=== PATIENT | male | born 1955 | race Caucasian/White ===

== ENCOUNTER 2017-06-15 15:35 | Emergency (ER) | payer OTHER ==
[~2017-06-15] VITALS: Ht 160 cm; Wt 68.0 kg
[2017-06-15 15:43] VITALS: BP 133/78
--- NOTE | 2017-06-15 15:46 | NUR ---
PT BACK TO LOBBY;
--- NOTE | 2017-06-15 16:35 | NUR ---
PATIENT AMBULATED TO ER BED 8
--- NOTE | 2017-06-15 16:36 | NUR ---
62/M BIB SELF C/O MID ABD PAIN X 2 DAYS.DENIES N/V/D; SKIN IS PINK/WARM/DRY; AAOX4 WITH EVEN AND STEADY GAIT; LUNGS CLEAR BL; PT DENIES ANY FEVER, CP, SOB, OR COUGH AT THIS TIME; PATIENT STATES PAIN OF 8/10 AT THIS TIME. PATIENT POSITIONED FOR COMFORT; HOB ELEVATED; BEDRAILS UP X2; BED DOWN. ER MD MADE AWARE OF PT STATUS.
[2017-06-15] MEDS ORDERED: NACL 0.9% 1,000 ML IV SCH (17:39)
[2017-06-15] MEDS ORDERED: FAMOTIDINE 20 MG/2 ML VIAL IVP ONE (17:40)
[2017-06-15] MEDS ORDERED: MORPHINE SULFATE 4 MG/ML SYR IVP ONE (17:40)
--- NOTE | 2017-06-15 17:53 | NUR ---
PT TAKEN TO CT
[2017-06-15 18:06] LABS: BASOPHILS # (AUTO) 0.4 K/uL (0.00-0.22); EOSINOPHILS # (AUTO) 0.1 K/uL (0-0.4); HEMATOCRIT 43.4 % (36-52); HEMOGLOBIN 14.7 g/dL (12.0-18.0); LYMPHOCYTES # (AUTO) 1.3 K/uL (2.0-11.5); MEAN CORPUSCULAR HEMOGLOBIN 31 pg (27-31); MEAN CORPUSCULAR HGB CONC 34 g/dL (33-37); MEAN CORPUSCULAR VOLUME 90.8 fL (80-94); MONOCYTES # (AUTO) 0.6 K/uL (0.8-1.0); NEUTROPHILS # (AUTO) 8.2 K/uL (1.8-7.7); PLATELET COUNT (AUTO) 237 K/uL (140-450); RED BLOOD CELL COUNT(AUTO) 4.78 MIL/uL (4.20-6.10); RED CELL DISTRIBUTION WIDTH 13.4 % (11.6-13.7); WHITE BLOOD COUNT (AUTO) 10.6 K/uL (4.8-10.8)
[2017-06-15 18:17] LABS: ANION GAP 14.3 (8-16); CARBON DIOXIDE 26.4 mmol/L (21-32); CREATININE 0.7 mg/dL (0.7-1.3); POTASSIUM 3.7 mmol/L (3.5-5.1)
[2017-06-15 18:23] LABS: ALBUMIN 3.8 g/dL (3.4-5.0); TOTAL BILIRUBIN 0.6 mg/dL (0.0-1.0)
[2017-06-15] MEDS ORDERED: FAMOTIDINE 20 MG/2 ML VIAL ONE (18:24)
[2017-06-15] MEDS ORDERED: MORPHINE SULFATE 4 MG/ML SYR ONE (18:26)
[2017-06-15] MEDS ORDERED: LACTULOSE 20 GM/30 ML UDC PO ONE (19:00)
[2017-06-15] MEDS ORDERED: NACL 0.9% 1,000 ML IV ONE (19:00)
--- NOTE | 2017-06-15 19:16 | NUR ---
Pt report given to HERBETR BAZAN. Transfer of care at this time.
--- NOTE | 2017-06-15 19:19 | NUR ---
PT RESTING IN BED, CURENTLY RECEIVING OMAR FLUIDS. NO S/S OF DISTRESS NOTED AT THE MOMENT. WILL CONT TO MONITOR.
[2017-06-15 19:42] VITALS: BP 161/85
--- NOTE | 2017-06-15 19:57 | NUR ---
Patient discharged with v/s stable. Written and verbal after care instructions given and explained. Patient alert, oriented and verbalized understanding of instructions. Ambulatory with steady gait. All questions addressed prior to discharge. ID band removed. Patient advised to follow up with PMD. Rx of COLACE 100MG given. Patient educated on indication of medication including possible reaction and side effects. Opportunity to ask questions provided and answered.
== END 2017-06-15 19:57 | disposition home or self-care (01) ==
LOC: MED 15:35
DX: K59.00 Constipation, unspecified (principal); K21.9 Gastro-esophageal reflux disease without esophagitis; E11.9 Type 2 diabetes mellitus without complications; Z88.2 Allergy status to sulfonamides
CPT/HCPCS: 36415; 74176; 80053; 81002; 82150; 83690; 85025; 96361; 96374; 96375; 99285; J2270; J3490; J7030

== ENCOUNTER 2019-02-19 08:47 | Emergency (ER) | payer OTHER ==
[~2019-02-19] VITALS: Ht 162.6 cm; Wt 73.5 kg
[2019-02-19 09:00] VITALS: BP 151/84
--- NOTE | 2019-02-19 09:12 | NUR ---
63 Y/O M C/C L LOWER BACK PAIN X2 DAYS. PAIN 8. CAUSE UNKNOWN PER PT. HAS NOT TAKEN ANY MEDICATION FOR PAIN. A: SULFA HX: NONE RX: NONE NO N/V/D.
--- NOTE | 2019-02-19 09:40 | NUR ---
DR OLIVEIRA AT BEDSIDE
[2019-02-19] MEDS ORDERED: NACL 0.9% 1,000 ML IV SCH (09:43)
[2019-02-19] MEDS ORDERED: KETOROLAC 30 MG/ML VIAL IVP ONE (09:45)
--- NOTE | 2019-02-19 10:10 | NUR ---
Patient taken to CT scan via wheelchair by tech.
[2019-02-19 10:50] LABS: BILIRUBIN,URINE NEGATIVE (NEGATIVE); BLOOD, URINE 2+ (NEGATIVE); COLOR,URINE YELLOW (YELLOW); LEUKOCYTE ESTERASE ,URINE NEGATIVE (NEGATIVE); NITRITE, URINE NEGATIVE (NEGATIVE); PH,URINE 5.5 (5.0-9.0); UGLUCOSE NEGATIVE (NEGATIVE)
[2019-02-19 10:50] LABS: BASOPHILS % (AUTO) 0.3 % (0.0-2.0); EOSINOPHILS % (AUTO) 0.1 % (0.0-4.0); HEMATOCRIT 44.4 % (36-52); HEMOGLOBIN 14.7 g/dL (12.0-18.0); LYMPHOCYTES % (AUTO) 9.3 % (20.5-51.1); MEAN CORPUSCULAR HEMOGLOBIN 31 pg (27-31); MEAN CORPUSCULAR HGB CONC 33 g/dL (33-37); MEAN CORPUSCULAR VOLUME 92.3 fL (80-94); MONOCYTES # (AUTO) 0.3 K/uL (0.8-1.0); MONOCYTES % (AUTO) 2.4 % (1.7-9.3); NEUTROPHILS # (AUTO) 9.8 K/uL (1.8-7.7); NEUTROPHILS % (AUTO) 87.9 % (42.2-75.2); PLATELET COUNT (AUTO) 262 K/uL (140-450); RED BLOOD CELL COUNT(AUTO) 4.81 MIL/uL (4.20-6.10); RED CELL DISTRIBUTION WIDTH 14.3 % (11.6-13.7); WHITE BLOOD COUNT (AUTO) 11.2 K/uL (4.8-10.8)
[2019-02-19 11:00] LABS: WBC,URINE 0-5 /HPF (0-5)
[2019-02-19 11:01] LABS: APPEARANCE,URINE CLEAR (CLEAR)
[2019-02-19 11:55] LABS: ANION GAP 13.4 (8-16); CARBON DIOXIDE 27.3 mmol/L (21-32); CREATININE 0.7 mg/dL (0.7-1.3); POTASSIUM 3.7 mmol/L (3.5-5.1)
[2019-02-19 12:00] LABS: ALBUMIN 3.5 g/dL (3.4-5.0); TOTAL BILIRUBIN 0.4 mg/dL (0.0-1.0)
[2019-02-19 13:12] VITALS: BP 128/72
== END 2019-02-19 13:12 | disposition home or self-care (01) ==
LOC: MED 08:47
DX: M54.5 Low back pain (principal); K21.9 Gastro-esophageal reflux disease without esophagitis; Z88.2 Allergy status to sulfonamides
CPT/HCPCS: 36415; 74176; 80053; 81001; 83690; 85025; 96374; 99284; J1885; J7030

== ENCOUNTER 2022-01-31 10:56 | Emergency (ER) | payer OTHER ==
[~2022-01-31] VITALS: Ht 162.6 cm; Wt 72.6 kg
--- NOTE | 2022-01-31 11:13 | NUR ---
PT AMBULATED TO ER BED 3
[2022-01-31 11:14] VITALS: BP 165/68
--- NOTE | 2022-01-31 11:20 | NUR ---
66/M PRESENTS TO ED WITH C/O EPIGASTRIC PAIN, N/V X1 WEEK, PATIENT REPORTS EPISODES WORSEN AFTER EATING, REPORTS BURNING PAIN. STATES HE TOOK MAALOX WITH NO RELIEF. DENIES CP, SOB.
[2022-01-31] MEDS ORDERED: FAMOTIDINE 20 MG TAB PO ONE (11:25)
[2022-01-31] MEDS ORDERED: KETOROLAC 30 MG/ML VIAL IM ONE (11:25)
[2022-01-31] MEDS ORDERED: ONDANSETRON 4 MG ODT PO ONE (11:25)
[2022-01-31 12:14] LABS: BASOPHILS % (AUTO) 0.4 % (0.0-2.0); EOSINOPHILS # (AUTO) 0.1 K/uL (0-0.4); EOSINOPHILS % (AUTO) 1.7 % (0.0-4.0); HEMATOCRIT 41.2 % (36-52); HEMOGLOBIN 14.1 g/dL (12.0-18.0); LYMPHOCYTES # (AUTO) 1.1 K/uL (2.0-11.5); LYMPHOCYTES % (AUTO) 18.3 % (20.5-51.1); MEAN CORPUSCULAR HEMOGLOBIN 31 pg (27-31); MEAN CORPUSCULAR HGB CONC 34 g/dL (33-37); MONOCYTES # (AUTO) 0.4 K/uL (0.8-1.0); MONOCYTES % (AUTO) 6.7 % (1.7-9.3); NEUTROPHILS # (AUTO) 4.5 K/uL (1.8-7.7); NEUTROPHILS % (AUTO) 72.9 % (42.2-75.2); PLATELET COUNT (AUTO) 249 K/uL (140-450); RED BLOOD CELL COUNT(AUTO) 4.53 MIL/uL (4.20-6.10); RED CELL DISTRIBUTION WIDTH 14.3 % (11.6-13.7); WHITE BLOOD COUNT (AUTO) 6.2 K/uL (4.8-10.8)
[2022-01-31 12:32] LABS: ALBUMIN 3.1 g/dL (3.4-5.0); ANION GAP 12.4 (8-16); CARBON DIOXIDE 26.3 mmol/L (21-32); CREATININE 0.7 mg/dL (0.6-1.3); POTASSIUM 3.7 mmol/L (3.5-5.1); TOTAL BILIRUBIN 0.5 mg/dL (0.0-1.0)
[2022-01-31] MEDS ORDERED: FAMO-92 PO (12:45)
[2022-01-31] MEDS ORDERED: ONDA-188 PO (12:46)
[2022-01-31 13:20] VITALS: BP 142/76
--- NOTE | 2022-01-31 13:20 | NUR ---
Patient discharged with v/s stable. Written and verbal after care instructions given and explained. Patient alert, oriented and verbalized understanding of instructions. Ambulatory with steady gait. All questions addressed prior to discharge. ID band removed. Patient advised to follow up with PMD. Rx of PEPCID AND ZOFRAN ODT given. Patient educated on indication of medication including possible reaction and side effects. Opportunity to ask questions provided and answered.
== END 2022-01-31 11:20 | disposition home or self-care (01) ==
LOC: MED 10:56
DX: K29.00 Acute gastritis without bleeding (principal); R11.2 Nausea with vomiting, unspecified; K21.9 Gastro-esophageal reflux disease without esophagitis; Z88.2 Allergy status to sulfonamides; Z79.899 Other long term (current) drug therapy
CPT/HCPCS: 36415; 80053; 83690; 85025; 96372; 99283; J1885; Q0162